=== PATIENT | male | born 1995 | race Two or more races ===

== ENCOUNTER 2021-07-24 16:49 | Inpatient (IN) | payer SELFPAY ==
[~2021-07-24] VITALS: Ht 190.5 cm; Wt 110.7 kg
[2021-07-24] MEDS ORDERED: ACETAMINOPHEN 500 MG TABLET PO ONE (18:30)
[2021-07-24 19:09] LABS: COVID AG,FIA SOURCE NASOPHARYNGEAL
[2021-07-24] MEDS ORDERED: LORazepam 2 MG/ML VIAL IM ONE (19:30)
[2021-07-24] MEDS ORDERED: LORazepam 2 MG TABLET PO PRN (20:45)
[2021-07-24] MEDS ORDERED: OLANZapine 5 MG RAPDIS TABLET PO PRN (20:45)
[2021-07-24] MEDS ORDERED: ZOLPIDEM TARTRATE 10 MG TABLET PO PRN (20:45)
[2021-07-24] MEDS ORDERED: AMLO-257 PO (21:51)
[2021-07-24] MEDS ORDERED: ASPI-1444 PO (21:51)
[2021-07-24] MEDS ORDERED: LOSA50TA37 PO (21:51)
[2021-07-24] MEDS ORDERED: GABA-1181 PO (21:51)
[2021-07-24] MEDS ORDERED: IBUP-2071 PO (21:51)
[2021-07-24] MEDS ORDERED: ACET-2744 PO (21:51)
[2021-07-25 20:07] VITALS: BP 146/88
[2021-07-26 06:24] VITALS: BP 116/67
[2021-07-26] MEDS ORDERED: TUBERCULIN, PURIFIED PROTEIN DERIVATIVE 5 TU/0.1 ML SYRINGE ID ONE (08:30)
[2021-07-26] MEDS ORDERED: ACETAMINOPHEN 325 MG TABLET PO PRN (08:30)
[2021-07-26] MEDS ORDERED: LOPERAMIDE HCL 2 MG CAPSULE PO PRN (08:30)
[2021-07-26] MEDS ORDERED: MAGNESIUM HYDROXIDE SUSPENSION 30 ML UDCUP PO PRN (08:30)
[2021-07-26] MEDS ORDERED: MAG HYDROX/AL HYDROX/SIMETH ES 30 ML SUSPENSION UDCUP PO PRN (08:30)
[2021-07-26] MEDS ORDERED: HydrOXYzine PAMOATE 50 MG CAPSULE PO PRN (08:30)
[2021-07-26] MEDS ORDERED: GuaiFENesin/D-METHORPHAN [SUGAR-FREE] 200-20MG/10 ML SYRUP UDCUP PO PRN (08:30)
[2021-07-26] MEDS ORDERED: PROMETHAZINE HCL 25 MG TABLET PO PRN (08:30)
[2021-07-26 08:43] VITALS: BP 115/68
[2021-07-26] MEDS: THIAMINE 100 MG TABLET PO SCH ×2 (09:00→17:00)
[2021-07-26] MEDS: OMEGA-3/DHA/EPA/FISH OIL 1,000 MG CAPSULE PO SCH (09:00)
[2021-07-26] MEDS: OLANZapine 5 MG RAPDIS TABLET PO SCH ×3 (09:00→17:00)
[2021-07-26] MEDS: MULTIVITAMINS WITH MINERALS, THERAPEUTIC TABLET PO SCH (09:00)
[2021-07-26] MEDS: NALTREXONE HCL 50 MG TABLET PO SCH (09:00)
[2021-07-26] MEDS: FOLIC ACID 1 MG TABLET PO SCH (09:00)
[2021-07-26] MEDS ORDERED: OMEG-135 PO (15:11)
[2021-07-26] MEDS ORDERED: DIVA-80 PO (15:11)
[2021-07-26] MEDS ORDERED: MELA5TAB40 PO (15:11)
[2021-07-26] MEDS ORDERED: OLAN5TAB94 PO (15:11)
[2021-07-26] MEDS ORDERED: NALT50TA PO (15:11)
[2021-07-26 16:20] VITALS: BP 136/88
[2021-07-26] MEDS: MELATONIN 5 MG TABLET PO SCH ×2 (20:54→22:05)
[2021-07-26] MEDS ORDERED: DIVALPROEX SODIUM 500 MG ER TABLET PO SCH (21:00)
[2021-07-27 06:12] VITALS: BP 114/64
[2021-07-27] MEDS: MULTIVITAMINS WITH MINERALS, THERAPEUTIC TABLET PO SCH (08:03)
[2021-07-27] MEDS: THIAMINE 100 MG TABLET PO SCH (08:04)
[2021-07-27] MEDS: OMEGA-3/DHA/EPA/FISH OIL 1,000 MG CAPSULE PO SCH (08:04)
[2021-07-27] MEDS: FOLIC ACID 1 MG TABLET PO SCH (08:04)
[2021-07-27 08:39] VITALS: BP 130/71
[2021-07-27] MEDS: OLANZapine 5 MG RAPDIS TABLET PO SCH ×2 (09:00→13:00)
[2021-07-27] MEDS: NALTREXONE HCL 50 MG TABLET PO SCH (09:00)
[2021-07-27] MEDS ORDERED: INFLUENZA VIRUS VACCINE QVS 2021-22 (6MO+)/PF 60 MCG/0.5 ML SYRINGE IM. ONE (13:15)
== END 2021-07-27 13:38 | disposition home or self-care (01) | DRG 885 ==
LOC: EMS 16:49 → B3A 07-25 17:22 → EMS 07-25 19:23
PROVIDERS: ADMIT Psychiatry & Neurology Psychiatry; ATTEND Psychiatry & Neurology Psychiatry
DX: F25.9 Schizoaffective disorder, unspecified (principal); Z20.822 Contact with and (suspected) exposure to COVID-19; I10 Essential (primary) hypertension; Z55.9 Problems related to education and literacy, unspecified; Z59.9 Problem related to housing and economic circumstances, unspecified; Z63.9 Problem related to primary support group, unspecified; Z65.3 Problems related to other legal circumstances; Z78.1 Physical restraint status
CPT/HCPCS: 96372; 99285; J2060; Q9967